=== PATIENT | female | born 1955 | race Caucasian/White ===

== ENCOUNTER 2022-03-22 21:18 | Emergency (ER) | payer SELFPAY ==
[2022-03-23 01:03] LABS: BASOPHIL 0.4 % (0-2); EOSINOPHIL 0.2 % (0-7); HCT 38.7 % (37.0-47.0); HGB 13.2 g/dl (12.5-16.0); LYMPHOCYTE 5.9 % (15-48); MCHC 34.1 g/dL (32.0-36.0); MPV 9.8 fL (6.0-9.5); NEUTROPHIL 88.1 % (41-80); NRBC 0; PLT 285 K/uL (150-400); RDW 12.4 % (11.5-14.0); WBC 12.9 K/uL (4.0-10.5)
[2022-03-23 01:31] LABS: ALBUMIN 3.6 g/dL (3.4-5.0); BILIRUBIN - TOTAL 0.7 mg/dL (0.2-1.0); BUN/CREAT RATIO (CALC) 13.6 RATIO; CREATININE 0.88 mg/dL (0.51-0.95); GLOBULIN (CALCULATION) 3.8 g/dL; POTASSIUM 3.9 mmol/L (3.5-5.1); TOTAL PROTEIN 7.4 g/dL (6.4-8.2)
== END 2022-03-23 02:11 | disposition home or self-care (01) ==
LOC: FER 21:18
PROVIDERS: Emergency Medicine
DX: T67.5XXA Heat exhaustion, unspecified, initial encounter (principal)
CPT/HCPCS: 36415; 80053; 84484; 85025; 93005; J7030